=== PATIENT | female | born 1985 | race Caucasian/White ===

== ENCOUNTER 2022-05-13 22:07 | Emergency (ER) | payer SELFPAY ==
[2022-05-13 22:13] VITALS: BP 137/84; PULSE 90; RESP 18; TEMP 98.6; BMI 28.5
[2022-05-14 01:01] LABS: BASO % 0.1 % (0-2.0); EOS % 0.9 % (0-4.5); HEMATOCRIT 33.1 % (32.4-45.2); HEMOGLOBIN 10.9 GM/dL (10.7-15.3); MCH 24.5 pg (25.7-33.7); MCHC 32.9 g/dl (32.0-36.0); MEAN CELL VOLUME 74.3 fl (80-96); MEAN PLT VOLUME 7.5 fl (7.5-11.1); MONO % 6.7 % (3.8-10.2); NEUT % 68.3 % (42.8-82.8); PLATELET COUNT 356 10^3/uL (134-434); RBC 4.45 M/mm3 (3.60-5.2); RDW 18.3 % (11.6-15.6); WHITE BLOOD COUNT 10.2 K/mm3 (4.0-10.0)
[2022-05-14 01:13] LABS: CALCIUM 8.7 mg/dL (8.5-10.1)
[2022-05-14 01:14] LABS: ALBUMIN 3.4 g/dl (3.4-5.0); BLOOD UREA NITROGEN 11.2 mg/dL (7-18)
[2022-05-14 01:17] LABS: CREATININE 0.6 mg/dL (0.55-1.3)
[2022-05-14 01:18] LABS: BILIRUBIN,TOTAL 0.3 mg/dL (0.2-1); TOT PROT 8.1 g/dl (6.4-8.2)
[2022-05-14] MEDS ORDERED: ACETAMINOPHEN 1000 MG/100 ML BAG IVPB ONE (03:01)
[2022-05-14] MEDS ORDERED: ACETAMINOPHEN INJECTION 100 ML IVPB ONE (03:03)
[2022-05-14 03:08] LABS: EPI CELLS 18 /uL (0-25.1); HYALINE CASTS 3 /uL (0-3.1); PH,URINE 5.5 (5.0-8.0); URINE APPEARANCE CLOUDY; URINE BACTERIA 94 /uL (0-1359); URINE BILIRUBIN NEGATIVE (NEGATIVE); URINE COLOR YELLOW; URINE GLUCOSE (UA) NEGATIVE (NEGATIVE); URINE KETONE TRACE (NEGATIVE); URINE LEUK ESTERASE TRACE (NEGATIVE); URINE NITRITE NEGATIVE (NEGATIVE); URINE PROTEIN 1+ (NEGATIVE); URINE WBC 13 /uL (0-25.8)
== END 2022-05-14 04:09 | disposition home or self-care (01) ==
LOC: JER 22:07
PROC: 3E0333Z Introduction of Anti-inflammatory into Peripheral Vein, Percutaneous Approach (ICD-10-PCS; principal; 2022-05-13)
DX: O03.9 Complete or unspecified spontaneous abortion without complication (principal)
CPT/HCPCS: 36415; 76817-TC; 80053; 81003; 84702; 84703; 85025; 86850; 86900; 86901; 99285-25

== ENCOUNTER 2022-11-11 16:28 | Emergency (ER) | payer OTHER ==
[2022-11-11 16:57] VITALS: BP 115/65; PULSE 82; RESP 16; TEMP 98.1; BMI 24.5
[2022-11-11] MEDS ORDERED: ONDANSETRON 4 MG TABLET PO ONE (18:36)
[2022-11-11] MEDS ORDERED: ACETAMINOPHEN 325 MG TABLET (FP) PO ONE (18:40)
[2022-11-11] MEDS ORDERED: ONDANSETRON *ODT* 4 MG TABLET ONE ×2 (18:42→19:24)
[2022-11-11 18:50] LABS: PH,URINE 5.5 (5.0-8.0); URINE APPEARANCE CLEAR; URINE BILIRUBIN NEGATIVE (NEGATIVE); URINE COLOR YELLOW; URINE GLUCOSE (UA) NEGATIVE (NEGATIVE); URINE KETONE 2+ (NEGATIVE); URINE LEUK ESTERASE NEGATIVE (NEGATIVE); URINE NITRITE NEGATIVE (NEGATIVE); URINE PROTEIN NEGATIVE (NEGATIVE); URINE UROBILINOGEN 0.2 mg/dL (0.2-1.0)
[2022-11-11 18:52] LABS: HCG,QUALITATIVE URINE Negative
[2022-11-11] MEDS ORDERED: KETOROLAC TROMETHAMINE 15 MG/ML VIAL IM ONE (19:09)
[2022-11-11] MEDS ORDERED: KETOROLAC TROMETHAMINE 15 MG/ML VIAL ONE (19:24)
[2022-11-11 19:57] LABS: BASO % 0.5 % (0-2.0); HEMATOCRIT 40.6 % (32.4-45.2); HEMOGLOBIN 13.5 GM/dL (10.7-15.3); LYMPH % 8.1 % (8-40); MCH 29.2 pg (25.7-33.7); MCHC 33.2 g/dl (32.0-36.0); MEAN PLT VOLUME 7.7 fl (7.5-11.1); MONO % 2.4 % (3.8-10.2); PLATELET COUNT 307 10^3/uL (134-434); RBC 4.61 M/mm3 (3.60-5.2); RDW 14.3 % (11.6-15.6); WHITE BLOOD COUNT 15.3 K/mm3 (4.0-10.0)
[2022-11-11 20:13] LABS: CALCIUM 8.6 mg/dL (8.5-10.1)
[2022-11-11 20:14] LABS: ALBUMIN 3.9 g/dl (3.4-5.0); BLOOD UREA NITROGEN 10.5 mg/dL (7-18)
[2022-11-11 20:17] LABS: CREATININE 0.8 mg/dL (0.55-1.3)
[2022-11-11 20:18] LABS: BILIRUBIN,TOTAL 0.7 mg/dL (0.2-1); TOT PROT 8.6 g/dl (6.4-8.2)
[2022-11-11] MEDS ORDERED: ACETAMINOPHEN 500 MG TABLET (FP) PO ONE (21:36)
[2022-11-11] MEDS ORDERED: ACETAMINOPHEN 325 MG TABLET (FP) ONE (21:36)
== END 2022-11-11 21:50 | disposition home or self-care (01) ==
LOC: JER 16:28
PROC: 3E023GC Introduction of Other Therapeutic Substance into Muscle, Percutaneous Approach (ICD-10-PCS; principal; 2022-11-11)
DX: N83.292 Other ovarian cyst, left side (principal)
CPT/HCPCS: 36415; 76830-TC; 80053; 81003; 84703; 85025; 87086; 99284-25

== ENCOUNTER 2023-02-13 16:08 | Emergency (ER) | payer OTHER ==
[2023-02-13 16:16] VITALS: BMI 27.3
[2023-02-13] MEDS ORDERED: ACETAMINOPHEN 1000 MG/100 ML BAG IVPB ONE (16:42)
[2023-02-13] MEDS ORDERED: SODIUM CHLORIDE 0.9% 500 ML INFUS.BAG IV ONE (16:42)
[2023-02-13] MEDS ORDERED: ACETAMINOPHEN INJECTION 100 ML IVPB ONE (16:48)
[2023-02-13 17:09] LABS: BASO % 0.3 % (0-2.0); EOS % 0.8 % (0-4.5); HEMATOCRIT 37.1 % (32.4-45.2); HEMOGLOBIN 12.3 GM/dL (10.7-15.3); LYMPH % 25.4 % (8-40); MCH 28.2 pg (25.7-33.7); MCHC 33.3 g/dl (32.0-36.0); MEAN CELL VOLUME 84.8 fl (80-96); MEAN PLT VOLUME 7.2 fl (7.5-11.1); MONO % 6.7 % (3.8-10.2); NEUT % 66.8 % (42.8-82.8); PLATELET COUNT 328 10^3/uL (134-434); RBC 4.37 M/mm3 (3.60-5.2); RDW 14.2 % (11.6-15.6); URINE APPEARANCE CLEAR; URINE BILIRUBIN NEGATIVE (NEGATIVE); URINE COLOR YELLOW; URINE GLUCOSE (UA) NEGATIVE (NEGATIVE); URINE KETONE NEGATIVE (NEGATIVE); URINE LEUK ESTERASE NEGATIVE (NEGATIVE); URINE NITRITE NEGATIVE (NEGATIVE); URINE PROTEIN NEGATIVE (NEGATIVE); URINE UROBILINOGEN 0.2 mg/dL (0.2-1.0); WHITE BLOOD COUNT 11.2 K/mm3 (4.0-10.0)
[2023-02-13 17:37] LABS: POTASSIUM 4.2 mmol/L (3.5-5.1)
[2023-02-13 17:40] LABS: ALBUMIN 3.6 g/dl (3.4-5.0); BLOOD UREA NITROGEN 12.6 mg/dL (7-18); CALCIUM 8.9 mg/dL (8.5-10.1)
[2023-02-13 17:43] LABS: CREATININE 0.7 mg/dL (0.55-1.3)
[2023-02-13 17:45] LABS: BILIRUBIN,TOTAL 0.3 mg/dL (0.2-1); TOT PROT 8.2 g/dl (6.4-8.2)
[2023-02-13] MEDS ORDERED: KETOROLAC TROMETHAMINE 15 MG/ML VIAL IVPUSH ONE (18:41)
[2023-02-13 18:55] VITALS: BP 110/75; PULSE 70; RESP 16; TEMP 98
== END 2023-02-13 18:57 | disposition home or self-care (01) ==
LOC: JER 16:08
PROC: 3E033NZ Introduction of Analgesics, Hypnotics, Sedatives into Peripheral Vein, Percutaneous Approach (ICD-10-PCS; principal; 2023-02-13)
PROC: 3E0333Z Introduction of Anti-inflammatory into Peripheral Vein, Percutaneous Approach (ICD-10-PCS; 2023-02-13)
DX: R10.32 Left lower quadrant pain (principal); N83.202 Unspecified ovarian cyst, left side; R30.0 Dysuria; R19.7 Diarrhea, unspecified
CPT/HCPCS: 36415; 76830-TC; 80053; 81003; 83690; 84703; 85025; 87086; 99284-25

== ENCOUNTER 2023-02-15 19:20 | Inpatient (IN) | payer OTHER ==
[2023-02-15] MEDS ORDERED: EPINEPHrine/PF 1 MG/1 ML (1:1,000) AMPULE ONE (19:30)
[2023-02-15] MEDS ORDERED: DEXAMETHASONE SOD PHOSPHATE 10 MG/1 ML VIAL ONE (19:30)
[2023-02-15] MEDS ORDERED: RACEPINEPHRINE IH SOL 2.25% 11.25 MG/0.5 ML VIAL IH ONE (19:32)
[2023-02-15] MEDS ORDERED: DEXAMETHASONE SOD PHOSPHATE 10 MG/1 ML VIAL IVPUSH ONE (19:32)
[2023-02-15] MEDS ORDERED: RACEPINEPHRINE IH SOL 2.25% 11.25 MG/0.5 ML VIAL NEB ONE (19:33)
[2023-02-15] MEDS ORDERED: FAMOTIDINE 20 MG/50 ML IVPB 20 MG/50 ML MG IVPB ONE ×2 (19:33→19:41)
[2023-02-15 20:26] LABS: BASO % 0.1 % (0-2.0); EOS % 0.7 % (0-4.5); HEMATOCRIT 37.1 % (32.4-45.2); HEMOGLOBIN 12.5 GM/dL (10.7-15.3); LYMPH % 32.8 % (8-40); MCH 28.2 pg (25.7-33.7); MCHC 33.7 g/dl (32.0-36.0); MEAN CELL VOLUME 83.8 fl (80-96); MEAN PLT VOLUME 7.7 fl (7.5-11.1); MONO % 6.2 % (3.8-10.2); NEUT % 60.2 % (42.8-82.8); PLATELET COUNT 329 10^3/uL (134-434); RBC 4.42 M/mm3 (3.60-5.2); RDW 14.3 % (11.6-15.6); WHITE BLOOD COUNT 12.4 K/mm3 (4.0-10.0)
[2023-02-15 20:42] LABS: POTASSIUM 3.8 mmol/L (3.5-5.1)
[2023-02-15 20:45] LABS: CALCIUM 8.4 mg/dL (8.5-10.1)
[2023-02-15 20:46] LABS: ALBUMIN 3.4 g/dl (3.4-5.0); BLOOD UREA NITROGEN 13.9 mg/dL (7-18)
[2023-02-15 20:49] LABS: CREATININE 0.7 mg/dL (0.55-1.3)
[2023-02-15 20:50] LABS: BILIRUBIN,TOTAL 0.3 mg/dL (0.2-1); TOT PROT 7.5 g/dl (6.4-8.2)
[2023-02-15] MEDS ORDERED: HYDROCORTISONE SOD SUCCINATE 100 MG/2 ML VIAL IVPUSH ONE (22:38)
[2023-02-16] MEDS: MUPIROCIN 2% TOPICAL OINTMENT FOR DECOLONIZATION NS SCH ×2 (02:09→10:05)
[2023-02-16] MEDS ORDERED: ACETAMINOPHEN 1000 MG/100 ML BAG IVPB ONE (06:10)
[2023-02-16 07:27] LABS: BASO % 0.1 % (0-2.0); HEMATOCRIT 37.2 % (32.4-45.2); HEMOGLOBIN 12.8 GM/dL (10.7-15.3); LYMPH % 14.9 % (8-40); MCHC 34.4 g/dl (32.0-36.0); MEAN CELL VOLUME 84.4 fl (80-96); MEAN PLT VOLUME 8.1 fl (7.5-11.1); PLATELET COUNT 316 10^3/uL (134-434); RBC 4.41 M/mm3 (3.60-5.2); RDW 13.9 % (11.6-15.6)
[2023-02-16 07:34] LABS: INR 1.08 (0.83-1.09); PROTHROMBIN TIME (PATIENT) 12.5 SEC (9.7-13.0)
[2023-02-16 07:37] LABS: ACTIVATED PTT 31.8 SECONDS (25.2-36.5)
[2023-02-16 07:44] LABS: POTASSIUM 4.3 mmol/L (3.5-5.1)
[2023-02-16 07:46] LABS: CALCIUM 8.7 mg/dL (8.5-10.1)
[2023-02-16 07:47] LABS: ALBUMIN 3.4 g/dl (3.4-5.0); BLOOD UREA NITROGEN 12.2 mg/dL (7-18); MAGNESIUM 2.2 mg/dL (1.8-2.4)
[2023-02-16 07:50] LABS: CREATININE 0.6 mg/dL (0.55-1.3); PHOSPHOROUS 3.6 mg/dL (2.5-4.9)
[2023-02-16 07:52] LABS: BILIRUBIN,TOTAL 0.4 mg/dL (0.2-1)
[2023-02-16] MEDS ORDERED: ENOXAPARIN NA (PORCINE) 40 MG/0.4 ML DISP.SYRIN SQ SCH (10:00)
[2023-02-16] MEDS ORDERED: HYDROCORTISONE SOD SUCCINATE 100 MG/2 ML VIAL IVPUSH SCH (10:00)
[2023-02-16] MEDS: DEXAMETHASONE SOD PHOSPHATE 10 MG/1 ML VIAL IVPUSH SCH ×2 (10:05→18:51)
[2023-02-16] MEDS ORDERED: FAMOTIDINE 20 MG/50 ML IVPB 20 MG/50 ML MG IVPB SCH (11:30)
[2023-02-16] MEDS: FAMOTIDINE 20 MG/50 ML IVPB 20 MG/50 ML MG IVPB SCH (21:06)
[2023-02-16] MEDS ORDERED: CHLORHEXIDINE GLUCONATE 4% CLEANSER FOR DECOLONIZATION TP SCH ×2 (22:00)
[2023-02-16] MEDS ORDERED: MUPIROCIN 2% TOPICAL OINTMENT FOR DECOLONIZATION NS SCH (22:00)
[2023-02-17] MEDS ORDERED: DEXAMETHASONE SOD PHOSPHATE 10 MG/1 ML VIAL IVPUSH SCH (02:00)
[2023-02-17 09:23] LABS: BASO % 0.1 % (0-2.0); HEMATOCRIT 37.4 % (32.4-45.2); HEMOGLOBIN 12.7 GM/dL (10.7-15.3); LYMPH % 14.9 % (8-40); MCH 28.5 pg (25.7-33.7); MCHC 33.9 g/dl (32.0-36.0); MEAN CELL VOLUME 83.9 fl (80-96); MEAN PLT VOLUME 8.1 fl (7.5-11.1); MONO % 3.9 % (3.8-10.2); NEUT % 81.1 % (42.8-82.8); PLATELET COUNT 378 10^3/uL (134-434); RBC 4.46 M/mm3 (3.60-5.2); RDW 14.1 % (11.6-15.6); WHITE BLOOD COUNT 18.3 K/mm3 (4.0-10.0)
[2023-02-17 09:40] LABS: POTASSIUM 4.1 mmol/L (3.5-5.1)
[2023-02-17 09:42] LABS: CALCIUM 8.8 mg/dL (8.5-10.1)
[2023-02-17 09:43] LABS: ALBUMIN 3.6 g/dl (3.4-5.0); BLOOD UREA NITROGEN 10.2 mg/dL (7-18); MAGNESIUM 2.4 mg/dL (1.8-2.4)
[2023-02-17 09:46] LABS: CREATININE 0.7 mg/dL (0.55-1.3); PHOSPHOROUS 3.2 mg/dL (2.5-4.9)
[2023-02-17 09:48] LABS: BILIRUBIN,TOTAL 0.5 mg/dL (0.2-1); TOT PROT 8.3 g/dl (6.4-8.2)
[2023-02-17] MEDS: predniSONE 20 MG TABLET (UD) PO SCH (09:50)
[2023-02-17] MEDS: FAMOTIDINE 20 MG/50 ML IVPB 20 MG/50 ML MG IVPB SCH ×2 (09:54→22:22)
[2023-02-17] MEDS: ENOXAPARIN NA (PORCINE) 40 MG/0.4 ML DISP.SYRIN SQ SCH (09:54)
[2023-02-17] MEDS ORDERED: ENOXAPARIN NA (PORCINE) 40 MG/0.4 ML DISP.SYRIN SQ SCH (10:00)
[2023-02-17 11:55] VITALS: BMI 23.0
[2023-02-18 05:49] VITALS: RESP 20
[2023-02-18] MEDS: FAMOTIDINE 20 MG/50 ML IVPB 20 MG/50 ML MG IVPB SCH (10:29)
[2023-02-18] MEDS: predniSONE 20 MG TABLET (UD) PO SCH (10:29)
[2023-02-18] MEDS: ENOXAPARIN NA (PORCINE) 40 MG/0.4 ML DISP.SYRIN SQ SCH (10:29)
[2023-02-18 12:05] LABS: URINE APPEARANCE CLEAR; URINE BILIRUBIN NEGATIVE (NEGATIVE); URINE COLOR YELLOW; URINE GLUCOSE (UA) NEGATIVE (NEGATIVE); URINE KETONE NEGATIVE (NEGATIVE); URINE LEUK ESTERASE NEGATIVE (NEGATIVE); URINE NITRITE NEGATIVE (NEGATIVE); URINE PROTEIN NEGATIVE (NEGATIVE); URINE UROBILINOGEN 0.2 mg/dL (0.2-1.0)
[2023-02-18 13:19] VITALS: BP 119/69; PULSE 90; TEMP 97.5
== END 2023-02-18 15:35 | disposition home or self-care (01) | DRG 916 ==
LOC: JER 19:20 → JERBED 19:54 → JICU 22:19 → J8W 02-16 16:34
PROVIDERS: ADMIT Internal Medicine Pulmonary Disease; ATTEND Nurse Practitioner Family
DX: T78.3XXA Angioneurotic edema, initial encounter (principal); T39.395A Adverse effect of other nonsteroidal anti-inflammatory drugs [NSAID], initial encounter; D72.829 Elevated white blood cell count, unspecified
CPT/HCPCS: 0241U-QW; 36415; 71045-TC-FY; 80053; 81003; 83735; 84100; 85025; 85610; 85730; 93005; 93010; 99285-25; J1100

== ENCOUNTER 2023-03-04 14:53 | Emergency (ER) | payer OTHER ==
[2023-03-04 15:01] VITALS: BP 112/73; PULSE 95; RESP 18; TEMP 98.1; BMI 28.3
== END 2023-03-04 15:29 | disposition home or self-care (01) ==
LOC: JERFT 14:53
DX: S60.444A External constriction of right ring finger, initial encounter (principal); M79.644 Pain in right finger(s); W49.04XA Ring or other jewelry causing external constriction, initial encounter
CPT/HCPCS: 99282-25

== ENCOUNTER 2023-12-03 11:30 | Inpatient (IN) | payer OTHER ==
[2023-12-03] MEDS ORDERED: AMPICILLIN SODIUM 2 GM VIAL ONE (12:18)
[2023-12-03] MEDS: ELECTROLYTE-148 SOLN 1,000 ML IV SCH (12:20)
[2023-12-03 12:36] LABS: INR 0.9 (0.83-1.09); PROTHROMBIN TIME (PATIENT) 10.4 SEC (9.7-13.0)
[2023-12-03 12:39] LABS: ACTIVATED PTT 28.4 SECONDS (25.2-36.5)
[2023-12-03 12:44] LABS: BASO % 0.1 % (0-2.0); HEMATOCRIT 38.1 % (32.4-45.2); HEMOGLOBIN 13.1 GM/dL (10.7-15.3); MCH 30.1 pg (25.7-33.7); MCHC 34.4 g/dl (32.0-36.0); MEAN CELL VOLUME 87.4 fl (80-96); MEAN PLT VOLUME 7.9 fl (7.5-11.1); MONO % 3.5 % (3.8-10.2); NEUT % 89.4 % (42.8-82.8); PLATELET COUNT 245 10^3/uL (134-434); RBC 4.36 M/mm3 (3.60-5.2); RDW 14.6 % (11.6-15.6); WHITE BLOOD COUNT 14.2 K/mm3 (4.0-10.0)
[2023-12-03 12:49] LABS: POTASSIUM 3.6 mmol/L (3.5-5.1)
[2023-12-03 12:51] LABS: BLOOD UREA NITROGEN 8.1 mg/dL (7-18)
[2023-12-03 12:53] LABS: CREATININE 0.5 mg/dL (0.55-1.3)
[2023-12-03] MEDS ORDERED: OXYTOCIN 20 UNITS in 0.9% NS 20 UNIT/1,000 ML INFUS.BAG IV ONE ×2 (13:33→16:40)
[2023-12-03] MEDS: OXYTOCIN 20 UNITS in 0.9% NS 20 UNIT/1,000 ML INFUS.BAG IV SCH (13:40)
[2023-12-03] MEDS ORDERED: MISOPROSTOL 100 MCG TABLET ONE (13:43)
[2023-12-03] MEDS ORDERED: MISOPROSTOL 200 MCG TABLET ONE (13:43)
[2023-12-03] MEDS: ACETAMINOPHEN 1000 MG/100 ML BAG IVPB ONE (14:00)
[2023-12-03] MEDS ORDERED: ACETAMINOPHEN INJECTION 100 ML IVPB ONE (14:05)
[2023-12-03] MEDS: MISOPROSTOL 100 MCG TABLET PV ONE (14:10)
[2023-12-03] MEDS ORDERED: BENZOCAINE 28 GM HEMORRHOIDAL OINTMENT TP PRN (14:26)
[2023-12-03] MEDS ORDERED: METHYLERGONOVINE MALEATE 0.2 MG/1 ML AMP IM PRN (14:26)
[2023-12-03] MEDS ORDERED: BISACODYL 10 MG SUPP.RECT RC PRN (14:26)
[2023-12-03 14:30] LABS: CORD HCO3 21.8 mmHg (20-29); CORD PCO2 46.5 mmHg (30-78); CORD pH 7.288 (7.14-7.44)
[2023-12-03 14:55] VITALS: BMI 29.7
[2023-12-03 17:08] LABS: HIV INTERPRETATION NEGATIVE (NEGATIVE)
[2023-12-03] MEDS: WITCH HAZEL 50% (TUCKS) 40 PAD/JAR PAD TP PRN (17:14)
[2023-12-03] MEDS: BENZOCAINE 20% 57 GM BOTTLE TP PRN (17:15)
[2023-12-03] MEDS: ACETAMINOPHEN 325 MG TABLET (FP) PO PRN (23:23)
[2023-12-04 08:16] LABS: BASO % 0.2 % (0-2.0); EOS % 0.1 % (0-4.5); HEMATOCRIT 33.9 % (32.4-45.2); HEMOGLOBIN 11.4 GM/dL (10.7-15.3); LYMPH % 22.6 % (8-40); MCHC 33.6 g/dl (32.0-36.0); MEAN CELL VOLUME 89.4 fl (80-96); MEAN PLT VOLUME 8.4 fl (7.5-11.1); MONO % 7.6 % (3.8-10.2); NEUT % 69.5 % (42.8-82.8); PLATELET COUNT 208 10^3/uL (134-434); RBC 3.79 M/mm3 (3.60-5.2); RDW 14.3 % (11.6-15.6)
[2023-12-04] MEDS ORDERED: SENNOSIDES/DOCUSATE COMBO (SENNA PLUS) TABLET (UD) PO PRN (22:00)
[2023-12-05] MEDS: diphenhydrAMINE HCL 25 MG CAPSULE (FP) PO ONE (09:55)
[2023-12-06 09:58] VITALS: BP 111/73; PULSE 107; RESP 20; TEMP 99.3
== END 2023-12-06 11:15 | disposition home or self-care (01) | DRG 560 ==
LOC: JDEL 11:30 → JLDR 12:11 → J3W 16:57
PROVIDERS: ADMIT Student in an Organized Health Care Education/Training Program; ATTEND Student in an Organized Health Care Education/Training Program
PROC: 10E0XZZ Delivery of Products of Conception, External Approach (ICD-10-PCS; principal; 2023-12-03)
PROC: 0HQ9XZZ Repair Perineum Skin, External Approach (ICD-10-PCS; 2023-12-03)
DX: O60.14X0 Preterm labor third trimester with preterm delivery third trimester, not applicable or unspecified (principal); O70.0 First degree perineal laceration during delivery; Z3A.34 34 weeks gestation of pregnancy; Z37.0 Single live birth
CPT/HCPCS: 36415; 36600; 80048; 82803; 85025; 85610; 85730; 86780; 86850; 86900; 86901; 87389; 88307-TC; J0131

== ENCOUNTER 2023-12-10 04:45 | Inpatient (IN) | payer OTHER ==
[2023-12-10] MEDS ORDERED: FAMOTIDINE 20 MG/50 ML IVPB 20 MG/50 ML MG IVPB ONE (04:52)
[2023-12-10] MEDS ORDERED: methylPREDNISolone NA SUCC 125 MG/2 ML VIAL ONE (04:52)
[2023-12-10] MEDS ORDERED: EPINEPHrine/PF 1 MG/1 ML (1:1,000) AMPULE ONE (04:54)
[2023-12-10] MEDS: EPINEPHrine 1:1,000 0.3 MG/0.3 ML SYR IM ONE (04:58)
[2023-12-10] MEDS: FAMOTIDINE 20 MG/50 ML IVPB 20 MG/50 ML MG IVPB ONE (05:04)
[2023-12-10] MEDS: methylPREDNISolone NA SUCC 125 MG/2 ML VIAL IVPUSH ONE (05:05)
[2023-12-10] MEDS: SODIUM CHLORIDE 0.9% 500 ML INFUS.BAG IV ONE (05:10)
[2023-12-10 10:10] LABS: INR 0.94 (0.83-1.09); PROTHROMBIN TIME (PATIENT) 10.9 SEC (9.7-13.0)
[2023-12-10 10:14] LABS: ACTIVATED PTT 26.5 SECONDS (25.2-36.5)
[2023-12-10 10:24] LABS: EOS % 0.1 % (0-4.5); HEMATOCRIT 36.3 % (32.4-45.2); HEMOGLOBIN 11.9 GM/dL (10.7-15.3); LYMPH % 8.5 % (8-40); MCH 29.4 pg (25.7-33.7); MCHC 32.9 g/dl (32.0-36.0); MEAN CELL VOLUME 89.4 fl (80-96); MEAN PLT VOLUME 7.2 fl (7.5-11.1); MONO % 1.8 % (3.8-10.2); NEUT % 89.6 % (42.8-82.8); PLATELET COUNT 350 10^3/uL (134-434); RBC 4.06 M/mm3 (3.60-5.2); RDW 14.2 % (11.6-15.6)
[2023-12-10 11:46] LABS: ALBUMIN 2.6 g/dl (3.4-5.0)
[2023-12-10 11:48] LABS: BILIRUBIN,DIRECT 0.1 mg/dL (0.0-0.2)
[2023-12-10 11:50] LABS: BILIRUBIN,TOTAL 0.2 mg/dL (0.2-1); TOT PROT 6.9 g/dl (6.4-8.2)
[2023-12-10 13:03] VITALS: BMI 27.5
[2023-12-10 17:26] LABS: EPI CELLS 17 /uL (0-25.1); HYALINE CASTS 1 /uL (0-3.1); URINE APPEARANCE CLOUDY; URINE BACTERIA 811 /uL (0-1359); URINE BILIRUBIN NEGATIVE (NEGATIVE); URINE COLOR ORANGE; URINE GLUCOSE (UA) NEGATIVE (NEGATIVE); URINE KETONE NEGATIVE (NEGATIVE); URINE LEUK ESTERASE 3+ (NEGATIVE); URINE NITRITE NEGATIVE (NEGATIVE); URINE PROTEIN TRACE (NEGATIVE); URINE RBC 745 /uL (0-23.9); URINE UROBILINOGEN 0.2 mg/dL (0.2-1.0); URINE WBC 1312 /uL (0-25.8)
[2023-12-10] MEDS: FAMOTIDINE 20 MG/50 ML IVPB 20 MG/50 ML MG IVPB SCH (22:12)
[2023-12-11 08:09] LABS: POTASSIUM 3.9 mmol/L (3.5-5.1)
[2023-12-11 08:11] LABS: CALCIUM 8.1 mg/dL (8.5-10.1)
[2023-12-11 08:12] LABS: BLOOD UREA NITROGEN 12.9 mg/dL (7-18); MAGNESIUM 2.1 mg/dL (1.8-2.4)
[2023-12-11 08:15] LABS: CREATININE 0.6 mg/dL (0.55-1.3); PHOSPHOROUS 4.7 mg/dL (2.5-4.9)
[2023-12-11 08:32] LABS: HEMOGLOBIN 11.2 GM/dL (10.7-15.3); MCH 29.3 pg (25.7-33.7); MCHC 32.9 g/dl (32.0-36.0); MEAN CELL VOLUME 89.3 fl (80-96); MEAN PLT VOLUME 7.2 fl (7.5-11.1); PLATELET COUNT 372 10^3/uL (134-434); RBC 3.81 M/mm3 (3.60-5.2); RDW 14.2 % (11.6-15.6); WHITE BLOOD COUNT 12.2 K/mm3 (4.0-10.0)
[2023-12-11] MEDS: methylPREDNISolone NA SUCC 40 MG/1 ML VIAL IVPUSH SCH (09:01)
[2023-12-11 10:17] VITALS: BP 104/56; PULSE 96; RESP 19; TEMP 97.8
[2023-12-11] MEDS: NITROFURANTOIN MONOHYD/M-CRYST 100 MG CAPSULE PO SCH (12:01)
[2023-12-12] MEDS ORDERED: FAMOTIDINE 20 MG TABLET PO SCH (10:00)
== END 2023-12-11 15:00 | disposition home or self-care (01) | DRG 561 ==
LOC: JER 04:45 → JERBED 08:50 → JICU 09:45
PROVIDERS: ADMIT Internal Medicine Pulmonary Disease; ATTEND Internal Medicine Pulmonary Disease
DX: O90.89 Other complications of the puerperium, not elsewhere classified (principal); T78.3XXA Angioneurotic edema, initial encounter; N39.0 Urinary tract infection, site not specified; B96.20 Unspecified Escherichia coli [E. coli] as the cause of diseases classified elsewhere
CPT/HCPCS: 0241U-QW; 36415; 36430; 80048; 80076; 81003; 83520; 83735; 84100; 85025; 85027; 85610; 85651; 85730; 86140; 87086; 87186; 99285-25; J0171; P9017

== ENCOUNTER 2024-03-18 10:01 | Emergency (ER) | payer OTHER ==
[2024-03-18 10:14] VITALS: BP 123/66; PULSE 93; RESP 18; TEMP 98.5; BMI 24.7
[2024-03-18 11:23] LABS: BASO % 0.2 % (0-2.0); EOS % 0.3 % (0-4.5); HEMATOCRIT 40.4 % (32.4-45.2); HEMOGLOBIN 13.4 GM/dL (10.7-15.3); LYMPH % 18.8 % (8-40); MCH 28.4 pg (25.7-33.7); MCHC 33.2 g/dl (32.0-36.0); MEAN CELL VOLUME 85.6 fl (80-96); MEAN PLT VOLUME 7.4 fl (7.5-11.1); MONO % 6.4 % (3.8-10.2); NEUT % 74.3 % (42.8-82.8); PLATELET COUNT 332 10^3/uL (134-434); RBC 4.72 M/mm3 (3.60-5.2); RDW 14.7 % (11.6-15.6); WHITE BLOOD COUNT 11.3 K/mm3 (4.0-10.0)
[2024-03-18 11:40] LABS: POTASSIUM 4.7 mmol/L (3.5-5.1)
[2024-03-18 11:42] LABS: CALCIUM 8.9 mg/dL (8.5-10.1)
[2024-03-18 11:43] LABS: ALBUMIN 3.7 g/dl (3.4-5.0); BLOOD UREA NITROGEN 19.2 mg/dL (7-18); MAGNESIUM 2.3 mg/dL (1.8-2.4)
[2024-03-18 11:46] LABS: CREATININE 0.8 mg/dL (0.55-1.3); PHOSPHOROUS 4.1 mg/dL (2.5-4.9)
[2024-03-18 11:48] LABS: BILIRUBIN,TOTAL 0.3 mg/dL (0.2-1); TOT PROT 7.9 g/dl (6.4-8.2)
[2024-03-18] MEDS ORDERED: FAMOTIDINE 20 MG/50 ML IVPB 20 MG/50 ML MG IVPB ONE (12:12)
[2024-03-18] MEDS ORDERED: MAG HYDROX/AL HYDROX/SIMETH 30 ML UNIT-DOSE CUP ONE (12:12)
[2024-03-18] MEDS ORDERED: METOCLOPRAMIDE HCL INJECTION 10 MG/2 ML VIAL ONE (12:12)
[2024-03-18] MEDS: MAG HYDROX/AL HYDROX/SIMETH 30 ML UNIT-DOSE CUP PO ONE (12:25)
[2024-03-18] MEDS: SODIUM CHLORIDE 0.9% 500 ML INFUS.BAG IV ONE (12:25)
[2024-03-18] MEDS: METOCLOPRAMIDE HCL INJECTION 10 MG/2 ML VIAL IVPB ONE (12:26)
[2024-03-18] MEDS: FAMOTIDINE 20 MG/50 ML IVPB 20 MG/50 ML MG IVPB ONE (12:26)
[2024-03-18 13:11] LABS: URINE APPEARANCE CLEAR; URINE BILIRUBIN NEGATIVE (NEGATIVE); URINE COLOR YELLOW; URINE GLUCOSE (UA) NEGATIVE (NEGATIVE); URINE KETONE NEGATIVE (NEGATIVE); URINE LEUK ESTERASE NEGATIVE (NEGATIVE); URINE NITRITE NEGATIVE (NEGATIVE); URINE PROTEIN NEGATIVE (NEGATIVE); URINE UROBILINOGEN 0.2 mg/dL (0.2-1.0)
== END 2024-03-18 17:42 | disposition home or self-care (01) ==
LOC: JER 10:01
PROC: 3E033GC Introduction of Other Therapeutic Substance into Peripheral Vein, Percutaneous Approach (ICD-10-PCS; principal; 2024-03-18)
PROC: 3E033GC Introduction of Other Therapeutic Substance into Peripheral Vein, Percutaneous Approach (ICD-10-PCS; 2024-03-18)
DX: R10.10 Upper abdominal pain, unspecified (principal); R11.2 Nausea with vomiting, unspecified; R42 Dizziness and giddiness
CPT/HCPCS: 36415; 71046-TC-FY; 74177-TC; 76705-TC; 76830-TC; 80053; 81003; 83690; 83735; 84100; 84703; 85025; 87086; 93005; 93010; 99285-25; Q9967